=== PATIENT | female | born 2000 | race Caucasian/White ===

== ENCOUNTER 2022-07-08 05:16 | Inpatient (IN) ==
--- NOTE | 2022-07-05 15:03 | Communication Note ---
Pt is scheduled for a on 07/08/22. PAT nurses tried several times to get a hold the patient and were unsuccessful. The surgeon's office also gave patient PAT number to call but patient failed to call into office. Pt will need nursing/travel assessment and anesthesia consultation done day of procedure. Surgeon's office was made aware
[2022-07-08 05:59] LABS: Hematocrit (blood only) 29.9 % (34.1-44.9); Hemoglobin 9.7 g/dl (12.0-16.0); Mean Corpuscular Hemoglobin 26.9 pg (25.0-34.0); Mean Corpuscular Hgb Conc 32.4 g/dL (32.0-36.0); Mean Corpuscular Volume 83.1 fL (80.0-100.0); Mean Platelet Volume 11.9 fL (9.4-12.3); Platelet Count 240 K/uL (130-400); RDW Coefficient of Variation 13.7 % (11.5-14.5); RDW Standard Deviation 41.4 fL (36.4-46.3); White Blood Count 14.67 K/ul (4.8-10.8)
[2022-07-08] MEDS ORDERED: CITRIC ACID/SODIUM CITRATE 15 ML UDC PO SCH (06:00)
[2022-07-08] MEDS ORDERED: LACTATED RINGER'S 1,000 ML IV SCH (06:00)
[2022-07-08] MEDS ORDERED: ceFAZolin 3,000 MG in DEXTROSE 5% 50 ML IV SCH (06:00)
[2022-07-08] MEDS ORDERED: SODIUM CHLORIDE 0.9% 250 ML IV PRN (06:25)
--- NOTE | 2022-07-08 07:23 | History & Physical Report ---
Date of Service July 08, 2022 Assessment & Plan (1) Encounter for supervision of normal in multigravida, antepartum: Plan: 22yo at 39w1d GA. Presents for scheduled repeat . 1. Fetus: Cat 1 2. Delivery planned via rLTCS with BTL. Consent signed 3. PPH risk: Type and screen 4. Vitals WNL. (2) Previous delivery affecting : (3) Gestational diabetes mellitus (GDM) affecting , antepartum: (4) GBS (group B Streptococcus carrier), +RV culture, currently : (5) Obesity affecting : Admission and Anticipated Discharge Date Admission Date: July 08, 2022 History of Present Illness Primary Care Provider: NO PCP 22yo at 39w1d GA. Presents for scheduled repeat . complications: Prior *desires repeat c/s and tubal *not candidate due to c/s only 05/2021 C/S WITH TUBAL SCHEDULED FOR 07/08/[address] MCCOY Desires sterilization *MA tubal papers at 28wks GDM w/28wk glucola *Begin monthly Growth US's Obesity (BMI between 35-39 @ beginning of ) *Growth US @ 32 wks *Weekly NSTs @ 36wks ?Prior complicated by preeclampsia-Records do not show preeclampsia or GHTN *await old records, if confirmed may need labs, 24hr urine and start baby asa Smoker *trying to quit COVID unvaccinated GBS POSITIVE OB Labs: Blood Type A Positive 12/07/21 Antibody Screen NEGATIVE 12/07/21 Hemoglobin 10.3 g/dl (12.0-16.0) L 04/24/22 Hematocrit 32.3 % (34.1-44.9) L 04/24/22 Mean Corpuscular Volume 82.9 fL (80-100) 12/07/21 Platelet Count 343 K/uL (130-400) 12/07/21 Rubella IgG Antibody Immune (Immune) 12/07/21 Rapid Plasma Reagin Nonreactive (Nonreactive) 05/08/22 Hepatitis B Surface Antigen. NON-REACTIVE (NON-REACTIVE) 12/07/21 Hepatitis C Antibody (EIA) NON-REACTIVE (NON-REACTIVE) 12/07/21 HIV (1&2) Ag and Ab Confirmation NON-REACTIVE (NON-REACTIVE) 12/07/21 Glucose 1 Hour 50 gm Load 148 mg/dl (70-130) H 04/24/22 OB Optional Labs: Chlamydia trachomatis RNA NOT DETECTED (NOT DETECTED) 12/07/21 Neisseria gonorrhoeae RNA NOT DETECTED (NOT DETECTED) 12/07/21 Allergies Allergy/AdvReac Type Severity Reaction Status Date / Time No Known Allergies Allergy Verified 07/08/22 05:42 Home Medications Medication Instructions Recorded Confirmed Type prenat.vits,jamie,ero-zbli-qsnxu 1 tab PO DAILY 12/06/21 07/08/22 History Patient History Medical History Anxiety Bipolar 1 disorder Depression Surgical History History of low transverse section 05/21/2021 Vania Richardson Previous section Family History (Updated 12/06/21 @ 11:08 by Zaida Rodriguez RN) Sister PCOS (polycystic ovarian syndrome) Endometriosis Father Colonic polyp Denies family history of Ovarian cancer Prostate cancer Myocardial infarction Breast cancer Colorectal cancer Social History (Updated 12/06/21 @ 11:39 by Zaida Rodriguez RN) Smoking Status: Current every day smoker Tobacco Type: E-cigarettes / Vaping Cigarettes Per Day: 5; Second Hand Exposure: No; Hx Alcohol Use: No Hx Substance Use: No Preferred Language: Bangladeshi Communication Ability: Effective Trust Advisor Required: No Beliefs That Will Affect Care: None marital status: Single marital status details: BASSAM Hooper (24) [phone] Current Living Situation: Significant Other Current Living Situation Comment: 1 year old son current occupational status: unemployed How many Children do You have: 1 Other Information That Helps Us Care for You: No Feels Safe at Home: Yes Safety Concerns: Feels Safe At This Time caffeine: Yes Dental Care, Regularly: Yes Physical Activity Frequency: Does not Exercise Seatbelt Use: always Sunscreen Use: Yes Assistive Devices: None Physical Exam Constitutional: WD/WN, vitals as above well developed, well nourished and + well hydrated; no acute distress Respiratory: normal respiratory effort, lungs clear to auscultation no respiratory distress, no labored breathing and no cough Cardiovascular: RRR, no murmur, no edema Heart Sounds: normal S1 and normal S2 Gastrointestinal (Abdomen): normal bowel sounds, soft, nontender, no hepatosplenomegaly Inspection/Auscultation: abdomen not distended and no abdominal edema Psychiatric: A+Ox3, euthymic affect Apperance: appropriately dressed and appropriately groomed Genitourinary: OB Exam Abdomen: + vertex OB Exam Monitor Tracing: + external FHT monitor used, + external uterine monitor used, + category I and + normal FHT variability Results & Data ([facility]) Vital Signs (Past 12 Hours) Vital Signs Temp Pulse Resp BP 07/08/22 07:02 82 125/71 07/08/22 05:47 37.0 C 82 18 116/63 07/08/22 05:44 37.0 C 82 18 116/63 Coding Level of Care Code None Diagnoses Encounter for supervision of normal in multigravida, antepartum Z34.80 Previous delivery affecting O34.219 Gestational diabetes mellitus (GDM) affecting , antepartum O24.419 GBS (group B Streptococcus carrier), +RV culture, currently O99.820 Obesity affecting O99.210
[2022-07-08] MEDS ORDERED: MoRPHine SULFATE PF 1 MG/ML 10 ML AMP/VIAL ONE (07:38)
[2022-07-08] MEDS ORDERED: OXYTOCIN 10 UNITS/ML 10ML VIAL ONE (08:21)
[2022-07-08] MEDS ORDERED: KETOROLAC 30 MG/ML VIAL ONE (08:21)
[2022-07-08] MEDS ORDERED: ONDANSETRON INJ 2 MG/ML 2 ML VIAL ONE (08:21)
[2022-07-08] MEDS ORDERED: HYDROmorphone INJ 0.5 MG/0.5 ML SYR IV PRN (09:18)
[2022-07-08] MEDS ORDERED: diphenhydrAMINE 50 MG/ML VIAL IV PRN (09:18)
[2022-07-08] MEDS ORDERED: NALOXONE HCL 0.4 MG/1 ML VIAL/CARP IV PRN (09:18)
[2022-07-08] MEDS ORDERED: NALOXONE HCL 1 MG in SODIUM CHLORIDE 0.9% 1000ML 1,000 ML IV PRN (09:18)
[2022-07-08] MEDS ORDERED: MoRPHine SULFATE PF 1 MG/ML 10 ML AMP/VIAL INT SPINAL ONE (09:18)
[2022-07-08] MEDS ORDERED: ONDANSETRON INJ 2 MG/ML 2 ML VIAL IV PRN (09:18)
[2022-07-08] MEDS ORDERED: MEPERIDINE HCL 25 MG/ML CARP/VIAL IV PRN (09:18)
[2022-07-08] MEDS ORDERED: NALBUPHINE HCL INJ 10 MG/ML AMP IV PRN (09:18)
[2022-07-08] MEDS ORDERED: PROMETHAZINE HCL 6.25 MG in SODIUM CHLORIDE 0.9% 50 ML IV PRN (09:18)
[2022-07-08] MEDS ORDERED: NALOXONE HCL 0.08 MG in SYRINGE 1.8 ML IV PRN (09:18)
[2022-07-08] MEDS ORDERED: ePHEDrine sulfate 50 MG/ML AMP IV PRN (09:18)
[2022-07-08] MEDS ORDERED: LACTATED RINGER'S 500 ML IV PRN (09:18)
[2022-07-08] MEDS ORDERED: MoRPHine SULFATE 2 MG/ML CARP IV PRN (09:18)
--- NOTE | 2022-07-08 09:20 | Anesthesiology Consultation ---
Date of Service July 08, 2022 Assessment & Plan Chart Review Chart Review: Acceptable Risk for Surgery and Patient NOT seen in Pre Admission Testing Consults Requested none ASA ASA2 Proposed Anesthesia Anesthesia Type: Spinal Risk / Benefits Reviewed With: PT / POA / Parent / Guardian, Accepts Plan and Informed Consent Obtained History Surgery Operation Date: 07/08/22 07:30 Proposed Procedures p Section - Cyrus Nicolas MD s Bilateral Tubal Ligation - Cyrus Nicolas MD Height/Weight Height: 5 ft 7 in Weight: 119.295 kg Allergies Allergy/AdvReac Type Severity Reaction Status Date / Time No Known Allergies Allergy Verified 07/08/22 05:42 Medications Home Medications Medication Instructions Recorded Confirmed Last Taken prenat.vits,jamie,dal-hgmn-uryqi 1 tab PO DAILY 12/06/21 07/08/22 07/07/22 08:00 Active Medications Generic Name Dose Route Start Last Admin Trade Name Freq PRN Reason Stop Dose Admin Cefazolin Sodium 3,000 mg/ 72.5 mls @ 145 mls/hr 07/08/22 06:00 07/08/22 0 8:34 Dextrose IV 07/08/22 14:00 Infused PREOP VASYL Infusion Protocol NPO Date Last Intake of Fluids: 07/07/22 Time Last Intake of Fluids: 11:40 Date Last Intake of Solids: 07/07/22 Time Last Intake of Solids: 11:40 Past Medical History Medical History Anxiety Bipolar 1 disorder Depression Exercise / Class Metabolic Activity II 4-5 Yardwork/Stairs/Walk up hill Past Family History Family History (Updated 12/06/21 @ 11:08 by Zaida oRdriguez RN) Sister PCOS (polycystic ovarian syndrome) Endometriosis Father Colonic polyp Denies family history of Ovarian cancer Prostate cancer Myocardial infarction Breast cancer Colorectal cancer Past Surgical History Surgical History History of low transverse section 05/21/2021 Vania Richardson Previous section Past Anesthesia History No Hx of Anesthesia Complications and No Family Hx of Anesthesia Complications History of PONV No Hx of PONV and No Hx of Motion Sickness Social History Smoking Status: Current every day smoker tobacco type: cigarettes Smoking cigarettes per day: 5 Hx Alcohol Use: No Hx Substance Use: No substance use type: does not use Physical Exam Vital Signs Last Vital Signs Temp 36.8 C 07/08/22 07:01 Pulse 73 07/08/22 09:18 Resp 20 07/08/22 07:01 BP 104/59 L 07/08/22 09:09 Pulse Ox 97 07/08/22 09:18 ENMT Mouth: no dentition abnormality Thyromental Distance: > or= 3.5 Finger Breadths Mallampati Class: II Neck normal visual inspection Respiratory normal respiratory effort Auscultation: lungs clear to auscultation bilaterally Cardiovascular Rate/Rhythm: regular rate and regular rhythm Psychiatric Orientation: alert Testing Laboratory Results 07/08/22 05:45 Blood Type A Positive 07/08/22 05:45 Antibody Screen NEGATIVE 07/08/22 05:45 07/08/22 07:03 POC Glucose 95
--- NOTE | 2022-07-08 09:20 | Anesthesiology Progress Note ---
Date of Service July 08, 2022 Anesthesia Post Procedure Vital Signs Vital Signs: Temp Pulse Resp BP Pulse Ox 07/08/22 09:18 73 97 07/08/22 09:13 70 98 07/08/22 09:09 65 104/59 L 07/08/22 09:08 72 97 07/08/22 09:05 78 94 07/08/22 09:03 82 97 07/08/22 08:58 68 96 07/08/22 08:59 69 119/58 L 94 07/08/22 07:01 20 07/08/22 07:01 36.8 C 20 07/08/22 07:02 82 125/71 07/08/22 05:47 37.0 C 82 18 116/63 07/08/22 05:44 37.0 C 82 18 116/63 Transfer of Care Handoff Completed per policy Notes Mental Status: alert / awake / arousable Nausea / Vomiting: adequately controlled Pain: adequately controlled Airway Patency, RR, SpO2: stable & adequate BP & HR: stable & adequate Hydration State: stable & adequate Neuraxial Anesthesia: was administered and sensory block is resolving Anesthetic Complications: no major complications apparent and Pt Satisfied with anesthetic care
[2022-07-08] MEDS ORDERED: NO NARCOTICS OR SEDATIVES SCH (09:30)
[2022-07-08] MEDS ORDERED: SODIUM CHLORIDE 0.9% 1000ML 1,000 ML IV SCH (09:30)
[2022-07-08] MEDS ORDERED: HYDROCORTISONE ACETATE 25 MG SUPP PR PRN (11:03)
[2022-07-08] MEDS ORDERED: SENNA 8.6 MG TAB PO PRN (11:03)
[2022-07-08] MEDS ORDERED: MAGNESIUM HYDROXIDE SUSP 30 ML UDC PO PRN (11:03)
[2022-07-08] MEDS ORDERED: BENZOCAINE 20% AER SPR 82.5 GM CAN EXT PRN (11:03)
[2022-07-08] MEDS ORDERED: DIPHTHERIA/TETANUS/PERTUSSIS 0.5 ML SYR/VIAL IM ONE (11:03)
[2022-07-08] MEDS ORDERED: OXYTOCIN 30 UNITS in LACTATED RINGER'S 1,000 ML IV SCH (11:15)
[2022-07-08] MEDS: LACTATED RINGER'S 1,000 ML IV SCH ×2 (12:23→21:39)
[2022-07-08] MEDS: KETOROLAC 30 MG/ML VIAL IV PRN (15:37)
[2022-07-08] MEDS ORDERED: LACTATED RINGER'S 1,000 ML IV ONE (16:57)
[2022-07-08] MEDS: SIMETHICONE 80 MG CHEW PO SCH ×3 (17:18→20:33)
[2022-07-08] MEDS: DOCUSATE SODIUM 100 MG CAP PO SCH (20:33)
--- NOTE | 2022-07-08 21:54 | Operative Report (OR) ---
PROCEDURE: Repeat low transverse section with bilateral tubal ligation via a bilateral salp ingectomy. SURGEON: Cyrus Nicolas MD. BANQUET BARTENDER: Dr. Margy crump. PREOPERATIVE DIAGNOSES: 1. Single intrauterine at 39 weeks and 1 day gestational age. 2. History of prior . 3. Gestational diabetes. 4. Body mass index greater than 35. 5. Tobacco use in . POSTOPERATIVE DIAGNOSES: 1. Single intrauterine at 39 weeks and 1 day gestational age. 2. History of prior . 3. Gestational diabetes. 4. Body mass index greater than 35. 5. Tobacco use in . 6. Status post procedure. ESTIMATED BLOOD LOSS: 500 mL. DRAINS: Delgado catheter. FLUIDS: Continuous lactated Ringer. URINE OUTPUT: Per Delgado catheter. COMPLICATIONS: None. DESCRIPTION OF PROCEDURE: The patient was taken to the operating room after consents were assured. Upon presentation, she was properly identified. Spinal anesthesia was obtained without difficulty. The patient was then prepped and draped in normal sterile fashion. Preprocedural timeout was perform ed, after which a Pfannenstiel incision was made with a knife. This was carried down to underlying f ascia with the Bovie. The fascia was then nicked at the midline with a knife and extended laterally in each direction with pickups and Krishnan scissors. The superior aspect of the fascia was then grasped with Kochers x2, elevated off the underlying rectus muscles using blunt dissection. Inferior aspect of the fascia was grasped with Koches x2, elevated off the underlying rectus muscles using blunt di ssection and Krishnan scissors. The midline was then entered bluntly with a single digit and evaluation was notable for no adhesions on the anterior abdominal wall. The incision into the abdomen was exten ded with Krishnan scissors and then was placed on stretch to apply adequate room for delivery. There was noted to be some adhesions of the bladder peritoneum to the uterus, which were taken down and a blad [place] flap was created in the normal fashion. A low transverse uterine incision was then made with a knife. The uterine cavity was then entered bl untly and placed on stretch to provide adequate room for delivery. The head of the was noted to be in cephalic position, was delivered through the hysterotomy without difficulty, body and shoul ders quickly followed. was noted to be vigorous soon after delivery. Cord was then double c lamped and cut and was taken over to the awaiting nursery staff for evaluation. Cord blood w as obtained. Attention was then turned to delivery of placenta, which was delivered intact, 3-vessel cord, gentle cord traction, and uterine massage. The uterus was then exteriorized, wrapped in a wet lap, and several passes were made to remove any remaining membranes with a dry lap. Hysterotomy was then reapproximated with 0 Vicryl in continuous running stitch. Excellent hemostasis was noted. Bi lateral salpingectomy for tubal ligation was performed with both tubes removed entirely using the min i LigaSure. The hysterotomy was then reinspected and noted to be in continued hemostasis. The poste rior cul-de-sac was cleaned of clots and debris. The uterus was returned to maternal abdomen. The h ysterotomy was then reinspected. Right and left pericolic gutters were cleaned of clots and debris. The fascia, subcutaneous layers, and muscle layers were all inspected and noted to be hemostatic. T he fascia was then reapproximated with 0 Vicryl in continuous running stitch. The subcutaneous layer s were reapproximated in 2 layers using 0 Vicryl. The skin was reapproximated with 3-0 Vicryl on a K eith needle in a subcuticular stitch. Needle, sponge, and instrument counts were correct at the comp letion of the case with mother and stable in the immediate post-delivery period. Job ID: [id number]
[2022-07-09] MEDS: KETOROLAC 30 MG/ML VIAL IV PRN (01:06)
[2022-07-09] MEDS ORDERED: KETOROLAC 30 MG/ML VIAL IV PRN (03:18)
[2022-07-09] MEDS ORDERED: DC INTRASPINAL MORPHINE SCH (03:18)
[2022-07-09] MEDS ORDERED: ONDANSETRON INJ 2 MG/ML 2 ML VIAL IV PRN (03:18)
[2022-07-09] MEDS ORDERED: PROMETHAZINE HCL 25 MG in SODIUM CHLORIDE 0.9% 50 ML IV PRN (03:18)
[2022-07-09] MEDS ORDERED: diphenhydrAMINE 50 MG/ML VIAL IV PRN (03:18)
[2022-07-09] MEDS ORDERED: diphenhydrAMINE Capsule 25 MG CAP PO PRN (03:18)
[2022-07-09] MEDS ORDERED: MEPERIDINE HCL 50 MG/ML CARP IV PRN (03:18)
[2022-07-09] MEDS: oxyCODONE/ACETAMINOPHEN 5mg/325mg TAB PO PRN ×5 (03:23→21:14)
[2022-07-09] MEDS: LACTATED RINGER'S 1,000 ML IV SCH (03:24)
--- NOTE | 2022-07-09 07:10 | Obstetrical Progress Note ---
Date of Service <Mishel Whipple MD - Last Filed: 07/09/22 08:16> July 09, 2022 Assessment & Plan <Mishel Whipple MD - Last Filed: 07/09/22 08:16> (1) care following delivery: 22 y/o at 39w1d GA presented for a scheduled repeat C/S now POD1. Patient tolerated the procedure well and has had satisfactory post-op recovery since. Encourage ambulation. Tolerating PO. Continue with pain control. <Cyrus Nicolas MD - Last Filed: 07/10/22 08:43> (1) care following delivery: Subjective <Mishel Whipple MD - Last Filed: 07/09/22 08:16> Ambulation: ambulating normally Voiding: no voiding problems Passing Gas:: Yes Diet Tolerance:: regular diet Lochia:: Small Feeding Type:: breast feeding Current Pain Level(1-10): 6 no f/c/CP/SOB/calf pain. Patient notes having increased abdominal pain this AM. Is due for pain meds. Physical Exam <Mishel Whipple MD - Last Filed: 07/09/22 08:16> Constitutional WD/WN, vitals as above Respiratory normal respiratory effort, lungs clear to auscultation Cardiovascular RRR, no murmur, no edema Extremities: no calf tenderness Psychiatric A+Ox3, euthymic affect Genitourinary OB Exam Abdomen: + fundal height (at the level of the umbilicus) Fundus: + firm generalized tenderness over the abdomen incision is c/d/i, no signs of infection or dehiscence Results & Data ([facility] [place]) <Mishel Whipple MD - Last Filed: 07/09/22 08:16> Vital Signs (Past 12 Hours) Vital Signs Temp Pulse Resp BP Pulse Ox O2 Del Method 07/09/22 03:14 18 97 07/09/22 03:14 36.6 C 79 18 103/69 97 Room Air 07/09/22 02:05 18 97 07/09/22 01:18 18 95 07/09/22 00:43 36.9 C 92 H 16 119/74 97 Room Air 07/09/22 00:10 16 95 07/08/22 23:00 18 96 07/08/22 22:00 18 96 07/08/22 19:40 37.0 C 88 16 116/59 L 96 Room Air 07/08/22 21:15 18 96 07/08/22 20:05 18 96 07/08/22 19:15 16 96 <Cyrus Nicolas MD - Last Filed: 07/10/22 08:43> Co-Signing Physician Notes patient was seen and evaluated with resident and agree with the above findings and plan. Routine care Resident Activity Tracking <Mishel Whipple MD - Last Filed: 07/09/22 08:16> Resident Involvement: Resident Care Provided Care Provided: OB Delivery
[2022-07-09 07:57] LABS: Basophils # (auto) 0.01 K/uL (0-0.2); Basophils % (auto) 0.1 %; Eosinophils # (auto) 0.09 K/uL (0-0.50); Eosinophils % (auto) 0.9 %; Hematocrit (blood only) 26.1 % (34.1-44.9); Hemoglobin 8.2 g/dl (12.0-16.0); Immature Granulocytes # (auto) 0.05 K/uL (0.00-0.02); Immature Granulocytes % (auto) 0.5 %; Lymphocytes # (auto) 1.28 K/uL (1.2-3.4); Lymphocytes % (auto) 12.6 %; Mean Corpuscular Hemoglobin 26.5 pg (25.0-34.0); Mean Corpuscular Hgb Conc 31.4 g/dL (32.0-36.0); Mean Corpuscular Volume 84.2 fL (80.0-100.0); Mean Platelet Volume 11.8 fL (9.4-12.3); Monocytes # (auto) 0.75 K/uL (0.24-0.82); Monocytes % (auto) 7.4 %; Neutrophils # (auto) 7.98 K/uL (1.4-6.5); Neutrophils % (auto) 78.5 %; Platelet Count 182 K/uL (130-400); RDW Coefficient of Variation 13.8 % (11.5-14.5); RDW Standard Deviation 42.4 fL (36.4-46.3); White Blood Count 10.16 K/ul (4.8-10.8)
[2022-07-09] MEDS: SIMETHICONE 80 MG CHEW PO SCH ×4 (08:07→20:38)
[2022-07-09] MEDS: PRENATAL VITAMIN 1 TAB PO SCH (08:07)
[2022-07-09] MEDS: DOCUSATE SODIUM 100 MG CAP PO SCH ×2 (08:07→20:39)
[2022-07-09] MEDS: IBUPROFEN 600 MG TAB PO PRN ×4 (08:07→21:15)
[2022-07-09] MEDS: FERROUS SULFATE 325 MG TAB PO SCH (08:07)
[2022-07-09] MEDS ORDERED: bisacodyL 5 MG TABEC PO SCH (20:00)
--- NOTE | 2022-07-10 06:00 | Obstetrical Progress Note ---
Date of Service <Mishel Whipple MD - Last Filed: 07/10/22 07:31> July 10, 2022 Assessment & Plan <Mishel Whipple MD - Last Filed: 07/10/22 07:31> (1) care following delivery: 22 y/o at 39w1d GA presented for a scheduled repeat C/S now POD2. Patient tolerated the procedure well and has had satisfactory post-op recovery since. Hemoglobin stable at 8.2. Encourage ambulation. Tolerating PO. Continue with pain control. Cleared from an OB perspective - f/u in office in 6 weeks. <Lilli Weldon MD, FACOG - Last Filed: 07/10/22 07:45> (1) care following delivery: Subjective <Mishel Whipple MD - Last Filed: 07/10/22 07:31> Ambulation: ambulating normally Voiding: no voiding problems Passing Gas:: Yes Diet Tolerance:: regular diet Lochia:: Small Feeding Type:: breast feeding no f/c/SOB/CP Physical Exam <Mishel Whipple MD - Last Filed: 07/10/22 07:31> Constitutional WD/WN, vitals as above Respiratory normal respiratory effort, lungs clear to auscultation Cardiovascular RRR, no murmur, no edema Extremities: no calf tenderness Psychiatric A+Ox3, euthymic affect Genitourinary OB Exam Abdomen: + fundal height (at the level of the umbilicus) Fundus: + firm c/d/i, no dehiscence, no signs of infection Results & Data ([facility]) <Mishel Whipple MD - Last Filed: 07/10/22 07:31> Vital Signs (Past 12 Hours) Vital Signs Temp Pulse Resp BP Pulse Ox O2 Del Method 07/10/22 04:00 36.8 C 99 H 16 115/73 98 Room Air 07/09/22 20:00 Room Air 07/09/22 20:00 36.6 C 87 16 112/75 98 Room Air Laboratory Results 07/10/22 07/09/22 Range/Units 06:37 07:44 WBC 10.16 (4.8-10.8) K/ul RBC 3.10 L (3.93-5.22) M/uL Hgb 8.2 L 8.2 L (12.0-16.0) g/dl Hct 26.1 L 26.1 L (34.1-44.9) % MCV 84.2 (80.0-100.0) fL MCH 26.5 (25.0-34.0) pg MCHC 31.4 L (32.0-36.0) g/dL RDW Std Deviation 42.4 (36.4-46.3) fL RDW Coeff of Yadi 13.8 (11.5-14.5) % Plt Count 182 (130-400) K/uL MPV 11.8 (9.4-12.3) fL Immature Gran % (Auto) 0.5 % Neut % (Auto) 78.5 % Lymph % (Auto) 12.6 % [place] % (Auto) 7.4 % Eos % (Auto) 0.9 % Baso % (Auto) 0.1 % Neut # (Auto) 7.98 H (1.4-6.5) K/uL Lymph # (Auto) 1.28 (1.2-3.4) K/uL [place] # (Auto) 0.75 (0.24-0.82) K/uL Eos # (Auto) 0.09 (0-0.50) K/uL Baso # (Auto) 0.01 (0-0.2) K/uL Immature Gran # (Auto) 0.05 H (0.00-0.02) K/uL <Lilli Weldon MD, FACOG - Last Filed: 07/10/22 07:45> Co-Signing Physician Notes Resident Physician Supervision Note: I interviewed and examined the patient. Discussed with Dr. Whipple and agree with findings and plan as documented in the note. Any exceptions or clarifications are listed here: Doing well. Doing well. Instructions reviewed. Plan d/c. Documented By: Lilli eWldon MD, FACOG Resident Activity Tracking <Mishel Whipple MD - Last Filed: 07/10/22 07:31> Resident Involvement: Resident Care Provided Care Provided: OB Delivery
[2022-07-10] MEDS: oxyCODONE/ACETAMINOPHEN 5mg/325mg TAB PO PRN ×2 (06:07→13:01)
[2022-07-10] MEDS: IBUPROFEN 600 MG TAB PO PRN ×2 (06:08→13:03)
[2022-07-10 06:59] LABS: Hematocrit (blood only) 26.1 % (34.1-44.9); Hemoglobin 8.2 g/dl (12.0-16.0)
[2022-07-10] MEDS: PRENATAL VITAMIN 1 TAB PO SCH (08:52)
[2022-07-10] MEDS: FERROUS SULFATE 325 MG TAB PO SCH (08:52)
[2022-07-10] MEDS: SIMETHICONE 80 MG CHEW PO SCH ×2 (08:52→13:00)
[2022-07-10] MEDS: DOCUSATE SODIUM 100 MG CAP PO SCH (08:52)
[2022-07-10] MEDS ORDERED: bisacodyL 10 MG SUPP PR PRN (10:55)
== END 2022-07-10 13:25 | disposition home or self-care (01) | DRG 785 ==
LOC: 4S1 05:16 → EDSTATUS 07:30 → 4E2 12:32
PROC: M.PPTLD (2022-07-08 07:30)